=== PATIENT | male | born 1985 ===

== ENCOUNTER 2018-08-31 09:52 | Emergency (ER) | payer OTHER ==
[2018-08-31 09:59] VITALS: RESP 18
[2018-08-31] MEDS ORDERED: Iohexol 240 (50 ml) PO ONE (10:59)
[2018-08-31] MEDS ORDERED: Iohexol 240 (50 ml) ONE (11:23)
[2018-08-31 11:33] LABS: BASO % 0.8 % (0.0-2.0); EOS % 0.3 % (0.0-4.0); HEMOGLOBIN 15.6 g/dL (12.0-18.0); LYMPH # 1.6 K/uL (1.0-4.3); LYMPH % 28.3 % (20.0-40.0); MEAN CELL VOLUME 87.6 fl (80.0-94.0); MEAN CORPUSCULAR HEMOGLOBIN 29.8 pg (27.0-31.0); MEAN CORPUSCULAR HGB CONC 34.1 g/dL (33.0-37.0); MEAN PLATELET VOLUME 9.1 fl (7.2-11.7); MONO # 0.4 K/uL (0.0-0.8); MONO % 6.4 % (0.0-10.0); NEUT # 3.6 K/uL (1.8-7.0); NEUT % 64.2 % (50.0-75.0); NRBC % 0.1 % (0.0-0.0); RBC 5.21 Mil/uL (4.40-5.90); RED CELL DISTRIBUTION WIDTH 13.6 % (11.5-14.5); WHITE BLOOD COUNT 5.5 K/uL (4.8-10.8)
[2018-08-31 11:44] LABS: ALB/GLOB RATIO 1.4 (1.0-2.1); ALBUMIN 4.9 g/dL (3.5-5.0); ALT/SGPT 31 U/L (21-72); AST/SGOT 38 U/L (17-59); BLOOD UREA NITROGEN 15 mg/dl (9-20); CALCIUM 10.1 mg/dL (8.4-10.2); GFR NON-AFRICAN AMERICAN > 60
--- NOTE | 2018-08-31 11:54 | ED PDOC ---
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 denies: Fever, Nausea, Vomi ting, Constipation, Urinary Symptoms (Penile discharge) Additional Complaint(s): 33 years old male presents to ER for evaluation of right lower abdominal pain and right testicular pain onset 1 day. Patient reports for the last 10 years he has been feeling like he has a rock in his testicle that comes and goes. He states pain has been worsening in the last 24 hours extending to right lower abdomen. Patient reports pain is worse when lifting heavy objects, coughing and straining. He denies any penile discharge, rash, constipation, nausea, vomiting or fever. PMD: None provided Past Medical History Reviewed: Historical Data, Nursing Documentation, Vital Signs Vital Signs: Last Vital Signs Temp 98.1 F 08/31/18 09:59 Pulse 83 08/31/18 09:59 Resp 18 08/31/18 09:59 BP 142/84 08/31/18 09:59 Pulse Ox 99 08/31/18 09:59 - Medical History PMH: No Chronic Diseases - Surgical History Surgical History: No Surg Hx - Family History Family History: States: Unknown Family Hx - Social History Current smoker - smoking cessation education provided: No Alcohol: Social Drugs: Denies - Home Medications Home Medications: Ambulatory Orders Medication Instructions Recorded No Known Home Med 08/31/18 - Allergies Allergies/Adverse Reactions: Allergies Allergy/AdvReac Type Severity Reaction Status Date / Time No Known Allergies Allergy Verified 08/31/18 10:32 Review of Systems ROS Statement: Except As Marked, All Systems Reviewed And Found Negative Constitutional: Negative for: Fever Gastrointestinal: Positive for: Abdominal Pain (RLQ). Negative for: Nausea, Vomiting, Constipation Genitourinary Male: Positive for: Other (Right testicular pain). Negative for: Penile Discharge Physical Exam - Reviewed Nursing Documentation Reviewed: Yes Vital Signs Reviewed: Yes - Physical Exam Appears: Positive for: Well, No Acute Distress Head Exam: Positive for: ATRAUMATIC Skin: Positive for: Normal Color, Warm, Dry Cardiovascular/Chest: Positive for: Regular Rate, Rhythm. Negative for: Murmur Respiratory: Positive for: Normal Breath Sounds. Negative for: Wheezing Gastrointestinal/Abdominal: Positive for: Soft, Tenderness (to palpation to RLQ). Negative for: Guarding, Rebound Male Genital Exam: Positive for: testicular tenderness (R) (to posterior testicle). Negative for: other (Palpable mass or mass with cough, while sitting or standing) Back: Positive for: Normal Inspection. Negative for: L CVA Tenderness, R CVA Tenderness Extremity: Positive for: Normal ROM. Negative for: Pedal Edema, Swelling Neurologic/Psych: Positive for: Alert, Oriented (x3) - Laboratory Results Result Diagrams: 08/31/18 11:17 08/31/18 11:17 Lab Results: AST 38 U/L (17-59) 08/31/18 11:17 ALT 31 U/L (21-72) 08/31/18 11:17 Alkaline Phosphatase 91 U/L (38-126) 08/31/18 11:17 Total Protein 8.5 G/DL (6.3-8.2) H 08/31/18 11:17 Albumin 4.9 g/dL (3.5-5.0) 08/31/18 11:17 Globulin 3.6 gm/dL (2.2-3.9) 08/31/18 11:17 Albumin/Globulin Ratio 1.4 (1.0-2.1) 08/31/18 11:17 - ECG O2 Sat by Pulse Oximetry: 99 (RA) Pulse Ox Interpretation: Normal Medical Decision Making Medical Decision Making: Time: 1059 MDM: Workup for inguinal hernia vs. other abdomen pathology --Labs --CT abdomen --Toradol --Reassess patient --Exam was performed with Chad as the conservation assistant [id number] CT Abdomen/Pelvis FINDINGS: LOWER THORAX: Unremarkable. LIVER: Unremarkable. No gross lesion or ductal dilatation. GALLBLADDER AND BILE DUCTS: Cholelithiasis. No wall thickening or pericholecystic fluid. PANCREAS: Unremarkable. No gross lesion or ductal dilatation. SPLEEN: Unremarkable. ADRENALS: Unremarkable. No mass. KIDNEYS AND URETERS: Unremarkable. No hydronephrosis. No solid mass. VASCULATURE: Unremarkable. No aortic aneurysm. No aortic atherosclerotic calcification or mural plaque present. BOWEL: Unremarkable. No obstruction. No gross mural thickening. APPENDIX: Normal appendix. PERITONEUM: Unremarkable. No free fluid. No free air. LYMPH NODES: Unremarkable. No enlarged lymph nodes. BLADDER: Unremarkable. REPRODUCTIVE: Unremarkable. BONES: No acute fracture. OTHER FINDINGS: None. IMPRESSION: Cholelithiasis. No hernia. Time: 1741 --US testes FINDINGS: RIGHT TESTICLE: Normal in size and echogenicity, no abnormal mass. Normal Doppler flow. LEFT TESTICLE: Normal in size and echogenicity, no abnormal mass. Normal Doppler flow. EPIDIDYMIDES: The epididymes are normal in size and demonstrate Doppler flow within normal l imits. SCROTUM: No hydrocele, varicocele, or extratesticular mass seen. Unremarkable. IMPRESSION: There is no testicular mass. Satisfactory blood flow to both testicles. Small right epididymal cyst measuring 0.5 x 0.4 x 0.5 cm is noted. Time: 1746 --Upon provider reevaluation, patient is medically stable and requires no further treatment in the ED at this time. Patient will be discharged home with referral for urology specialist. Counseling was provided and all questions were answered regarding diagnosis. There is agreement to discharge plan. Return precautions discussed. Clinical Impression: Testicle lump; abdominal pain Scribe Attestation: Documented by Ana Lilia Hernandez and Halley Huerta, acting as scribes for Saida Monte MD. Provider Scribe Attestation: All medical record entries made by the Scribe were at my direction and personally dictated by me. I have reviewed the chart and agree that the record accurately reflects my personal performance of the history, physical exam, medical decision making, and the department course for this patient. I have also personally directed, reviewed, and agree with the discharge instructions and disposition. Disposition - Clinical Impression Clinical Impression: Testicle lump, Abdominal pain - Patient ED Disposition Is Patient to be Admitted: No Counseled Patient/Family Regarding: Studies Performed, Diagnosis, Need For Followup - Disposition Referrals: Sebastian Owen MD [Medical Doctor] - Disposition: Routine/Home Disposition Time: 17:30 Condition: IMPROVED Additional Instructions: Follow up with urologist. Take Tylenol or Motrin for pain. Return to the emergency department if symptoms worsen or new symptoms develop. Instructions: Viral Gastroenteritis, Adult (DC) Forms: [employer] (Thai), pic5 (Egyptian) Print Language: TURKMEN
[2018-08-31] MEDS ORDERED: Iohexol 300 100 ML IJ ONE (12:30)
[2018-08-31] MEDS ORDERED: Sodium Chloride 0.9% 50 ML IV ONE (12:31)
--- NOTE | 2018-08-31 14:37 | CT ---
Date of service: 08/31/2018 PROCEDURE: CT Abdomen and Pelvis with contrast HISTORY: rule out right sided hernia COMPARISON: None. TECHNIQUE: Contrast dose: Radiation dose: Total exam DLP = 457.7 mGy-cm. This CT exam was performed using one or more of the following dose reduction techniques: Automated exposure control, adjustment of the mA and/or kV according to patient size, and/or use of iterative reconstruction technique. FINDINGS: LOWER THORAX: Unremarkable. LIVER: Unremarkable. No gross lesion or ductal dilatation. GALLBLADDER AND BILE DUCTS: Cholelithiasis. No wall thickening or pericholecystic fluid. PANCREAS: Unremarkable. No gross lesion or ductal dilatation. SPLEEN: Unremarkable. ADRENALS: Unremarkable. No mass. KIDNEYS AND URETERS: Unremarkable. No hydronephrosis. No solid mass. VASCULATURE: Unremarkable. No aortic aneurysm. No aortic atherosclerotic calcification or mural plaque present. BOWEL: Unremarkable. No obstruction. No gross mural thickening. APPENDIX: Normal appendix. PERITONEUM: Unremarkable. No free fluid. No free air. LYMPH NODES: Unremarkable. No enlarged lymph nodes. BLADDER: Unremarkable. REPRODUCTIVE: Unremarkable. BONES: No acute fracture. OTHER FINDINGS: None. IMPRESSION: Cholelithiasis. No hernia.
[2018-08-31 18:01] VITALS: PULSE 71
[2018-08-31 18:46] VITALS: BP 122/70; TEMP 98; O2SAT 100
--- NOTE | 2018-09-02 11:20 | US ---
Date of service: 08/31/2018 HISTORY: Pain right testicle TECHNIQUE: Realtime sonography through the scrotum with color and doppler flow. COMPARISON: None Available. FINDINGS: RIGHT TESTICLE: Measures 4.2 x 2.5 x 3.1 cm. Normal echotexture and flow. RIGHT EPIDIDYMIS: Epididymal head measures approximately 1.3 cm with normal arterial flow. There is an small approximately 5 mm x 4 mm cystic focus within the head of the epididymis likely representing a small spermatocele. LEFT TESTICLE: Measures 4.2 x 2.2 x 3.1 cm. Normal echotexture and flow. LEFT EPIDIDYMIS: Epididymal head measures 0.9 x 0.6 x 0.8 cm. Grossly unremarkable appearance with normal flow. HYDROCELE: None. VARICOCELE: None. OTHER FINDINGS: None. IMPRESSION: Small cyst spermatocele seen within the right epididymal head. No obvious testicular masses or collections. Both testicles exhibit arterial flow.
== END 2018-08-31 18:45 | disposition home or self-care (01) ==
LOC: H.ER 09:52
DX: R10.30 Lower abdominal pain, unspecified (principal); N50.9 Disorder of male genital organs, unspecified; K80.20 Calculus of gallbladder without cholecystitis without obstruction
CPT/HCPCS: 74177; 80053; 85025; 93975; 96374; 99284; J1885; Q9966; Q9967